=== PATIENT | male | born 1940 | race Caucasian/White ===

== ENCOUNTER 2019-11-21 12:59 | Emergency (ER) | payer OTHER ==
[~2019-11-21] VITALS: Ht 182.9 cm; Wt 104.3 kg
[2019-11-21] MEDS ORDERED: GLIMEPIRIDE1 MG (13:40)
[2019-11-21] MEDS ORDERED: FORTAMET1000 MG (13:40)
[2019-11-21] MEDS ORDERED: LIPITOR40 M1 (13:41)
[2019-11-21] MEDS ORDERED: LANTUS SOL100 UNIT/1 (13:41)
[2019-11-21] MEDS ORDERED: FENOFIBRATE150 MG (13:41)
[2019-11-21] MEDS ORDERED: COZAAR100 MG (13:41)
== END 2019-11-21 16:02 | disposition home or self-care (01) ==
LOC: ER 12:59
DX: M25.552 Pain in left hip (principal)